=== PATIENT | female | born 1975 | race Caucasian/White ===

== ENCOUNTER → 2018-10-20 | Outpatient (CLI) | payer OTHER | LOC: FIMAGING 12:51 | PROVIDERS: ATTEND Obstetrics & Gynecology | DX: O09.211 Supervision of pregnancy with history of pre-term labor, first trimester (principal); O09.521 Supervision of elderly multigravida, first trimester; O09.811 Supervision of pregnancy resulting from assisted reproductive technology, first trimester; O10.011 Pre-existing essential hypertension complicating pregnancy, first trimester; O34.219 Maternal care for unspecified type scar from previous cesarean delivery; I10 Essential (primary) hypertension; Z86.711 Personal history of pulmonary embolism; Z79.01 Long term (current) use of anticoagulants; Z3A.13 13 weeks gestation of pregnancy ==

== ENCOUNTER → 2018-12-16 | Outpatient (CLI) | payer OTHER | LOC: FIMAGING 13:20 | PROVIDERS: ATTEND Obstetrics & Gynecology | DX: Z36.9 Encounter for antenatal screening, unspecified (principal); O09.522 Supervision of elderly multigravida, second trimester; O09.812 Supervision of pregnancy resulting from assisted reproductive technology, second trimester; O34.219 Maternal care for unspecified type scar from previous cesarean delivery; Z3A.21 21 weeks gestation of pregnancy ==